=== PATIENT | male | born 2000 | race Hispanic/Latino ===

== ENCOUNTER 2021-10-11 13:55 | Emergency (ER) | payer OTHER ==
[~2021-10-11] VITALS: Ht 177.8 cm; Wt 162.8 kg
[2021-10-11 14:25] LABS: BASOPHILS % (AUTO) 0.1 % (0.0-5.0); EOSINOPHILS % (AUTO) 0.1 % (0.0-8.0); HEMATOCRIT 45.3 % (42-54); LYMPHOCYTES % (AUTO) 7.6 % (21.0-51.0); MEAN CORPUSCULAR HEMOGLOBIN 30.8 pg (27.0-33.0); MEAN CORPUSCULAR HGB CONC 34.2 g/dL (32.0-36.0); MEAN CORPUSCULAR VOLUME 90.1 fL (79-99); MONOCYTES % (AUTO) 3.8 % (3.0-13.0); NEUTROPHILS % (AUTO) 88.1 % (40.0-77.0); PLATELET COUNT (AUTO) 268 K/uL (130-400); RED BLOOD CELL COUNT(AUTO) 5.03 MIL/uL (4.50-6.20); RED CELL DISTRIBUTION WIDTH 11.9 % (11.0-15.5); WHITE BLOOD COUNT (AUTO) 14.8 K/uL (4.8-10.8)
[2021-10-11] MEDS ORDERED: KETOROLAC 15MG/ML VIAL (15MG/ML) IV ONE (14:30)
[2021-10-11] MEDS ORDERED: FAMOTIDINE 20MG VIAL IV ONE (14:30)
[2021-10-11] MEDS ORDERED: MORPHINE 2 MG SYG IVP ONE (14:30)
[2021-10-11] MEDS ORDERED: ONDANSETRON 4MG INJ IVP ONE (14:30)
[2021-10-11 14:37] LABS: APPEARANCE,URINE CLEAR (CLEAR); BILIRUBIN,URINE NEGATIVE (NEGATIVE); COLOR,URINE YELLOW (YELLOW); GLUCOSE, URINE (UA) NEGATIVE (NEGATIVE); KETONES,URINE NEGATIVE (NEGATIVE); LEUKOCYTE ESTERASE ,URINE NEGATIVE (NEGATIVE); NITRATE,URINE NEGATIVE (NEGATIVE); OCCULT BLOOD,URINE TRACE-INTACT (NEGATIVE); PH,URINE 7.5 (5.0-8.0); PROTEIN,URINE TRACE mg/dL (NEGATIVE); UROBILINOGEN,URINE 0.2 mg/dL (0.2-1.0)
[2021-10-11 14:45] LABS: ALBUMIN 4.2 g/dL (3.5-5.0); BILIRUBIN,TOTAL 0.6 mg/dL (0.2-1.0); CREATININE 0.7 mg/dL (0.5-1.5); POTASSIUM 4.1 mmol/L (3.5-5.1); TOTAL PROTEIN, SERUM 8.7 g/dL (6.0-8.3)
[2021-10-11 15:03] LABS: RBC,URINE 0-1 /HPF (0-1)
[2021-10-11 15:04] LABS: BACTERIA,URINE Rare /HPF (None Seen); SQUAMOUS EPITHELIAL CELL,UR Rare /HPF (0-2)
[2021-10-11 15:37] VITALS: BP 126/71
== END 2021-10-11 15:39 | disposition home or self-care (01) ==
LOC: EDH 13:55
DX: K80.20 Calculus of gallbladder without cholecystitis without obstruction (principal)
CPT/HCPCS: 36415; 76705; 80053; 81001; 83690; 85025; 96374; 96375; 99284; J1885; J2405; J3490

== ENCOUNTER 2022-01-02 16:40 | Emergency (ER) | payer OTHER ==
[~2022-01-02] VITALS: Ht 177.8 cm; Wt 163.3 kg
[~2022-01-02 16:40] MED LIST: CEPH500B PO; DICY20TA2 PO; METO-296 PO; ONDA4TAB10 PO; PANT40TA PO
[2022-01-02 17:20] LABS: APPEARANCE,URINE CLOUDY (CLEAR); BILIRUBIN,URINE NEGATIVE (NEGATIVE); COLOR,URINE YELLOW (YELLOW); GLUCOSE, URINE (UA) NEGATIVE (NEGATIVE); KETONES,URINE NEGATIVE (NEGATIVE); LEUKOCYTE ESTERASE ,URINE SMALL (NEGATIVE); NITRATE,URINE NEGATIVE (NEGATIVE); OCCULT BLOOD,URINE LARGE (NEGATIVE); PH,URINE 7.5 (5.0-8.0); PROTEIN,URINE 100 mg/dL (NEGATIVE)
[2022-01-02 17:28] LABS: RBC,URINE >100 /HPF (0-1)
[2022-01-02 17:29] LABS: BACTERIA,URINE Few /HPF (None Seen); SQUAMOUS EPITHELIAL CELL,UR Rare /HPF (0-2)
[2022-01-02] MEDS ORDERED: PHEN-847 PO (17:42)
[2022-01-02] MEDS ORDERED: CEPH500B PO (17:42)
[2022-01-02] MEDS ORDERED: AZITHROMYCIN 250 MG TABLET PO ONE ×2 (17:44→18:00)
[2022-01-02] MEDS ORDERED: LIDOCAINE HCL-MPF 1% 2ML VIAL ONE (17:44)
[2022-01-02] MEDS ORDERED: CEFTRIAXONE 1G VIAL ONE (17:44)
[2022-01-02] MEDS ORDERED: PHENAZOPYRIDINE HCL 200 MG TABLET ONE (17:45)
[2022-01-02] MEDS ORDERED: PHENAZOPYRIDINE HCL 200 MG TABLET PO ONE (18:00)
[2022-01-02] MEDS ORDERED: CEFTRIAXONE 1G VIAL IM ONE (18:00)
[2022-01-02 18:13] VITALS: BP 156/81
== END 2022-01-02 18:13 | disposition home or self-care (01) ==
LOC: EDH 16:40
DX: N39.0 Urinary tract infection, site not specified (principal); R30.0 Dysuria; R03.0 Elevated blood-pressure reading, without diagnosis of hypertension; Z79.899 Other long term (current) drug therapy; Z98.890 Other specified postprocedural states
CPT/HCPCS: 81001; 87077; 87088; 87186; 87486; 87797; 96372; 99283; J0696; J3490